=== PATIENT | female | born 1950 | race Caucasian/White ===

== ENCOUNTER → 2018-08-02 13:28 | Outpatient (CLI) | payer MEDICARE, SELFPAY ==
--- NOTE | 2018-08-02 13:33 | CT_ITS ---
CT lung screening EXAM: CT LUNG LOW DOSE WO CONTRAST HISTORY: 60 pack-year smoking history, asymptomatic for lung cancer ITS.REASON: NICOTINE DEPENDENT ORDERING PHYSICIAN: Taina Richardson PATIENT AGE: 67 years COMPARISON: None TECHNIQUE: The exam was performed on a GE Light Speed [address] scanner using 2.90 mGy CTDI. A low dose helical CT CHEST was performed on a multi-detector scanner. All CT scans at the facility use one or more dose reduction, viz: automated exposure control, ma/kV adjustment per patient size (including targeted exams where dose is matched to indication, i.e. head), or iterative reconstruction technique. The LDCT was performed in a facility that meets the criteria for the screening program. Data regarding this exam was submitted to ACR which is an approved registry. The order for this exam indicates that it came as a result of a lung cancer screening counseling shard decision-making visit that included all the elements required of such a visit including smoking cessation. The radiologist interpreting this exam meets the [facility] criteria for the LDCT lung cancer screening program. The exam is reported using the Lung-RADS classification scale and reported to the ACR registry. NOTE: This study was performed for the specific purposes of lung cancer screening and is not an alternative to diagnostic chest CT. RADIATION DOSE: CTDI vol(CT dose Index-volume) = 2.90mG DLP (Dose Length Product) = 104.99 mGcm FINDINGS: Indeterminate or Suspicious Lung Nodules(Category3-4B): None Indeterminate/Non-actionable Nodules(Category2): None Benign nodules(Category1)None LUNG PARENCHYMA COPD. 4 mm noncalcified nodule right middle lobe subpleural. Calcified granuloma right lung base laterally. There is scarring in the left lung base medially Coronary artery calcification is noted. Upper abdominal images show nonobstructing bilateral renal calculi measuring up to 5 mm in the upper pole on the right and 3 mm in the mid polar region on the left. A calcified nodule is present in the right lobe of the thyroid gland at 6 mm IMPRESSION: 1. Lung RADS Category: 2, benign 2. Other findings: COPD, coronary artery calcification consistent with coronary artery disease. Bilateral nephrolithiasis RECOMMENDATIONS: 12 month LDCT follow-up
== END ==
PROVIDERS: PCP Nurse Practitioner Family; Visit Provider Nurse Practitioner Family
DX: Z12.2 Encounter for screening for malignant neoplasm of respiratory organs (principal); Z87.891 Personal history of nicotine dependence

== ENCOUNTER → 2020-08-13 08:12 | Outpatient (CLI) | payer MEDICARE, SELFPAY ==
--- NOTE | 2020-08-13 08:19 | US_ITS ---
PROCEDURE: US ABDOMEN COMPLETE CLINICAL INDICATION: ABD WALL BULGE COMPARISON: No exams were available for comparison FINDINGS: PANCREAS: The visualized pancreas is unremarkable. No ductal dilation. LIVER: No focal liver lesions demonstrated. Homogeneous echogenicity. No intrahepatic biliary ductal dilatation evident. There is appropriate direction of blood flow within a non dilated portal vein RIGHT KIDNEY: Unremarkable. Normal size and echogenicity. No hydronephrosis LEFT KIDNEY: Unremarkable. Normal size and echogenicity. No hydronephrosis GALLBLADDER: No gallstones, gallbladder wall thickening, pericholecystic fluid, or biliary dilatation. CBD measures 0.2 centimeters. AORTA: No evidence of aneurysmal dilatation. SPLEEN: Unremarkable. Normal size and echogenicity ASCITES: None demonstrated. No evidence of mass lesion noted at the area of concern in the right lower quadrant. IMPRESSION: No focal lesions at the site of interest. Unremarkable abdominal ultrasound. Dictated by: Briseida Carrillo 08/13/2020 15:34 Briseida Carrillo in [place] 08/13/2020 15:34
== END ==
PROVIDERS: PCP Nurse Practitioner Family; Visit Provider Nurse Practitioner Family
DX: R19.00 Intra-abdominal and pelvic swelling, mass and lump, unspecified site (principal)
CPT/HCPCS: 76700

== ENCOUNTER → 2020-08-29 10:04 | Outpatient (CLI) | payer MEDICARE, SELFPAY ==
[2020-08-29 11:10] LABS: Blood Urea Nitrogen 12 mg/dl (7-17); Estimated Glomerular Filt Rate 82 ml/min (>60); GFR (African American) 100 ML/MIN (>60)
== END ==
PROVIDERS: Visit Provider Nurse Practitioner Family
DX: R10.9 Unspecified abdominal pain (principal); R19.00 Intra-abdominal and pelvic swelling, mass and lump, unspecified site
CPT/HCPCS: 36415; 82565; 84520

== ENCOUNTER → 2020-08-31 10:12 | Outpatient (CLI) | payer MEDICARE, SELFPAY ==
--- NOTE | 2020-08-31 10:17 | CT_ITS ---
PROCEDURE: CT ABDOMEN PELVIS W CON CLINICAL INDICATION: ABD WALL BULGE, LOW RT SIDED ABD PAIN Rlq to umbilical pain Pt can feel raised area when sitting up COMPARISON: CT ABDPELW/O CT ABD PELVIS W/O CONTRAST from 12/31/2016 TECHNIQUE: IV Contrast: 75ML Isovue 370 Oral Contrast 450ml Redicat Axial images obtained with sagittal and coronal reformats. All CT scans at the facility use one or more dose reduction, viz: automated exposure control, ma/kV adjustment per patient size (including targeted exams where dose is matched to indication, i.e. head), or iterative reconstruction technique. FINDINGS: LOWER THORAX: There is an area of scarring in the left lung base posteriorly and medially. Calcified granuloma is present in the right lower lobe. There are few scattered faint areas of ground-glass attenuation in the lower lobes nonspecific. Coronary artery calcifications are present. There is mild thickening of the distal esophagus nonspecific. ABDOMEN & PELVIS: There is an isodense nodule in the right hepatic lobe anteriorly measuring 17 x 11 mm with some peripheral enhancement/puddling. 7 minutes delayed image shows this area to be filling in centrally suggesting a hemangioma. MRI may confirm. The liver has an otherwise unremarkable appearance. The spleen and adrenal glands have an unremarkable appearance. There is a 4 mm hypodensity in the region of the pancreatic tail. This could represent a small cyst or even partial volume averaging from the fat around the pancreas There is a nonobstructing 5 x 3 mm stone in the upper pole of the right kidney. A 14 mm cyst is present in the lower pole of the right kidney. The left kidney has an unremarkable appearance. There is mild thickening of the descending and transverse portion of the duodenum which is nonspecific. No evidence of appendicitis. There is dense calcification along the right side of the uterus at both the fundus and body of the uterus. Possibly due to a calcified exophytic fibroids focal enhancement is present in the fundus of the uterus on the left measuring 2 cm and could be fibroid in nature. There is mild thickening of the wall the urinary bladder which may be due to nondistention. Colonic diverticulosis is present. No evidence of diverticulitis. A BB is placed in the right mid abdominal region to ramesh area of clinical concern. There is no mass or hernia at this region. No abnormal fluid collection. There is a small area of hyperdensity within the left rectus muscle medially unchanged and may be due to an area of scarring or partial calcification series 4, image 32 measuring 1 x 0.5 cm. No abdominal wall hernia apparent No acute bony findings. IMPRESSION: 1. 17 mm peripheral enhancing right hepatic lobe lesion which may represent a hemangioma. MRI with hemangioma protocol suggested for confirmation. 2. 4 mm cystic area in the pancreatic tail which may only represent a simple cyst or even partial volume averaging artifact. This may be better evaluated with MRI as well. 3. 2 cm enhancing area in the fundus of the uterus on the left along with calcified nodules around the uterus. These areas may represent fibroids. Suggest pelvic ultrasound for confirmation. 4. No evidence of abdominal wall hernia or abnormal fluid collection. Please see above for detail. Dictated by: Byron Lake MD 09/01/2020 12:00 Byron Lake MD in [facility] 09/01/2020 12:00
== END ==
PROVIDERS: PCP Nurse Practitioner Family; Visit Provider Nurse Practitioner Family
DX: R10.9 Unspecified abdominal pain (principal); R19.00 Intra-abdominal and pelvic swelling, mass and lump, unspecified site
CPT/HCPCS: 74177; Q9967

== ENCOUNTER → 2020-09-15 16:35 | Outpatient (CLI) | payer MEDICARE, SELFPAY | PROVIDERS: Visit Provider Urology | DX: N20.0 Calculus of kidney (principal) | CPT/HCPCS: 87086; 87088; 87186 ==

== ENCOUNTER → 2020-09-23 07:48 | Outpatient (CLI) | payer MEDICARE, SELFPAY ==
[2020-09-23 08:21] LABS: Blood Urea Nitrogen 15 mg/dl (7-17); Estimated Glomerular Filt Rate 82 ml/min (>60); GFR (African American) 100 ML/MIN (>60)
--- NOTE | 2020-09-23 08:44 | MR_ITS ---
PROCEDURE: MR ABDOMEN WO/W CON CLINICAL INDICATION: ABNORMAL CT OF THE ABDOMEN COMPARISON: CT CT ABDOMEN PELVIS W CON from 08/31/2020 TECHNIQUE: Routine multiplanar multi echo sequences are performed without gadolinium enhancement. FINDINGS: There are 3 focal T2 hyperintense lesions noted in the right lobe of the liver. The largest of these in the segment 5 measures 1.9 x 1.2 centimeters. Focal lesion demonstrates nodular peripheral progressive filling on multiphasic contrast-enhanced images with the near complete filling on the 15 minutes post-contrast images. The 2nd lesion subcapsular lesion in segment 7 measures approximately 1.5 centimeters, demonstrates progressive peripheral filling. Further smaller subcentimeter T2 hyperintense lesions are noted in the right lobe of the liver, demonstrates filling on the delayed phase images, consistent with hemangiomas. No other focal suspicious mass lesion. No evidence of restricted diffusion. No evidence of intra or extrahepatic biliary dilation. The gallbladder is unremarkable. The rest of the liver demonstrates no focal abnormality. T2 hyperintense focal lesions noted in the right kidney, demonstrates no significant interval change without evidence of enhancement, likely represents a cyst. The spleen, pancreas and adrenal glands are unremarkable. Visualized large and small bowel loops demonstrate no focal abnormality. The visualized lung bases are clear. IMPRESSION: Multiple T2 hyperintense lesions measuring up to 1.9 centimeters in the liver, demonstrates peripheral progressive nodular enhancement. Findings are consistent with hemangiomas. 1.6 centimeters cyst in the right kidney. No other focal suspicious masses. Dictated by: Briseida Carrillo 09/24/2020 09:27 Briseida Carrillo in [place] 09/24/2020 09:27
--- NOTE | 2020-09-23 10:07 | US_ITS ---
PROCEDURE: US TRANSVAGINAL CLINICAL INDICATION: ABNORMAL TISSUE IN UTERUS COMPARISON: No exams were available for comparison FINDINGS: UTERUS: 6.4 x 5cmx 3cm with a combined endometrial thickness of 2.2mm LEFT OVARY: 1kbf0vtp2.2cm with a volume of 2.5ml. RIGHT OVARY: 2cmx 2uvp3ib with a volume of 2.6ml. Multiple hypoechoic lesions are noted in the uterus, largest measures up to 2.2 centimeters, likely represents uterine fibroids. No evidence of free fluid in the pelvic cul-de-sac. IMPRESSION: Findings are consistent with uterine fibroids measuring up to 2.2 centimeters. Dictated by: Briseida Carrillo 09/23/2020 13:16 Briseida Carrillo in [place] 09/23/2020 13:16
== END ==
PROVIDERS: PCP Nurse Practitioner Family; Visit Provider Nurse Practitioner Family
DX: K76.9 Liver disease, unspecified (principal); Q45.3 Other congenital malformations of pancreas and pancreatic duct; R93.5 Abnormal findings on diagnostic imaging of other abdominal regions, including retroperitoneum; R87.9 Unspecified abnormal finding in specimens from female genital organs
CPT/HCPCS: 36415; 74183; 76830; 82565; 84520; A9576

== ENCOUNTER → 2021-10-02 09:42 | Outpatient (CLI) | payer MEDICARE, SELFPAY | PROVIDERS: Visit Provider Ophthalmology | DX: Z01.812 Encounter for preprocedural laboratory examination (principal); Z20.822 Contact with and (suspected) exposure to COVID-19 | CPT/HCPCS: C9803; U0003; U0005 ==

== ENCOUNTER 2021-10-05 09:24 | Day surgery (SDC) | payer MEDICARE, SELFPAY ==
[2021-09-30 13:05] VITALS: BMI 21.9
[2021-10-05 09:42] VITALS: BP 196/81; PULSE 78; RESP 18; TEMP 36.8; O2SAT 100
[2021-10-05 11:20] VITALS: BP 186/80; PULSE 68; RESP 18; O2SAT 98
[2021-10-05 11:25] VITALS: BP 165/73; PULSE 70; RESP 18; O2SAT 97
[2021-10-05 11:30] VITALS: BP 158/70; PULSE 67; RESP 18; O2SAT 98
[2021-10-05 11:34] VITALS: BP 160/69; PULSE 68; RESP 18; O2SAT 98
[2021-10-05 11:37] VITALS: BP 145/65; PULSE 68; RESP 18; TEMP 36.6; O2SAT 98
== END 2021-10-05 11:50 | disposition home or self-care (01) ==
LOC: OR 09:24
PROVIDERS: PCP Nurse Practitioner Family; Visit Provider Ophthalmology
DX: H25.813 Combined forms of age-related cataract, bilateral (principal); H02.831 Dermatochalasis of right upper eyelid; H02.834 Dermatochalasis of left upper eyelid; H91.90 Unspecified hearing loss, unspecified ear; Z88.8 Allergy status to other drugs, medicaments and biological substances
CPT/HCPCS: 66984; V2632

== ENCOUNTER → 2021-10-23 09:20 | Outpatient (CLI) | payer MEDICARE, SELFPAY | PROVIDERS: PCP Nurse Practitioner Family; Visit Provider Ophthalmology | DX: Z01.812 Encounter for preprocedural laboratory examination (principal); Z20.822 Contact with and (suspected) exposure to COVID-19 | CPT/HCPCS: C9803; U0003; U0005 ==

== ENCOUNTER 2021-10-26 09:19 | Day surgery (SDC) | payer MEDICARE, SELFPAY ==
[2021-10-26 10:18] VITALS: BP 161/76; PULSE 83; RESP 18; TEMP 36.6; O2SAT 96; BMI 21.3
[2021-10-26 11:49] VITALS: BP 161/66; PULSE 71; RESP 16; O2SAT 99
[2021-10-26 11:54] VITALS: BP 149/69; PULSE 69; RESP 16; O2SAT 98
[2021-10-26 11:59] VITALS: BP 142/65; PULSE 66; RESP 16; O2SAT 100
[2021-10-26 12:04] VITALS: BP 153/64; PULSE 77; RESP 16; O2SAT 100
[2021-10-26 12:05] VITALS: BP 129/85; PULSE 78; RESP 16; TEMP 36.6; O2SAT 96
== END 2021-10-26 12:20 | disposition home or self-care (01) ==
LOC: OR 09:21
PROVIDERS: PCP Nurse Practitioner Family; Visit Provider Ophthalmology
DX: H25.812 Combined forms of age-related cataract, left eye (principal)
CPT/HCPCS: 66984; V2632

== ENCOUNTER → 2023-04-25 12:09 | Outpatient (POV) | payer MEDICARE, SELFPAY | PROVIDERS: PCP Nurse Practitioner Family; Visit Provider Dermatology | DX: Z00.00 Encounter for general adult medical examination without abnormal findings (principal) ==

== ENCOUNTER 2024-06-12 22:37 | Emergency (ER) | payer MEDICARE, SELFPAY ==
[2024-06-12 22:38] VITALS: BP 196/63; PULSE 87; RESP 20; TEMP 36.7; O2SAT 97; BMI 19.3
--- NOTE | 2024-06-12 22:49 | ECG_ITS ---
APPROVED REPORT Exam: Resting ECG HR:83 bpm ECG Measurements Heart Rate 83 AXES DC 156 P 88 QRSd 75 QRS 84 QT 365 T 85 QTc 404 Conclusion SINUS RHYTHM NORMAL ECG Electronically signed by : THANIA TURNER, 06/13/2024 05:40:40
--- NOTE | 2024-06-12 23:00 | PC.NURSE ---
MD to bedside
--- NOTE | 2024-06-12 23:05 | XR_ITS ---
PROCEDURE INFORMATION: Exam: XR Chest Exam date and time: 06/12/2024 11:01 PM Age: 73 years old Clinical indication: Cough TECHNIQUE: Imaging protocol: Radiologic exam of the chest. Views: 2 views. COMPARISON: LUNGSCREEN CT lung screening 08/02/2018 1:40 PM FINDINGS: Lungs: Calcified granuloma at the right lung base. No consolidation. Pleural spaces: Unremarkable. No pleural effusion. No pneumothorax. Heart/Mediastinum: Unremarkable. No cardiomegaly. Vasculature: Unremarkable. Bones/joints: Unremarkable. IMPRESSION: No acute findings.
--- NOTE | 2024-06-12 23:09 | ED_ITS ---
Discharge Plan Disposition Patient Disposition: Home, Self-Care Condition: Good Prescriptions Prescriptions: New amoxicillin-pot clavulanate 875-125 mg tablet 1 tab PO BID Qty: 14 0RF azithromycin 250 mg tablet See Rx Instructions .ROUTE .COMPLEX Qty: 6 0RF Rx Instructions: take 500 mg (2 tablets) today (day 1), then 250 mg (1 tablet) for 4 days (days 2-5) No Action atorvastatin 20 mg tablet 20 mg PO DAILY Qty: 90 1RF famotidine 40 mg tablet 40 mg PO HS Qty: 90 1RF lisinopril 10 mg tablet 10 mg PO DAILY Qty: 90 1RF Referrals Follow up/Referrals: Rowena Villarreal APRN [Primary Care Provider] - See instructions Activity Restrictions/Add. Instructions Additional Instructions/Restrictions: You were evaluated in the ER and are appropriate for discharge at this time. You are positive for COVID. Please wash your hands and cover your mouth when sneezing and coughing. Maintain good hygiene to avoid spreading your illness. Take the prescribed antibiotics as directed, do not skip doses, do not stop taking them early. Drink plenty of water, gatorade, or pedialyte to maintain good hydration. Please make an appointment with your primary care doctor for reevaluation in 2 to 3 days. Return to the ER with new, worsening, or otherwise concerning symptoms. Clinical Impressions Clinical Impression: COVID, Pneumonia Print Language Print Language: Croatian Discharge ED Provider: Krista Naqvi General Chief Complaint: Shortness of Breath/Dyspnea Stated Complaint: SOA, cough, brandon Time Seen by Provider: 06/12/24 22:59 Mode of Arrival: Ambulatory Source of Information: Patient Limitations: No Limitations Description of Symptoms (Recalled from ER Triage Doc. by RN): pt to ED with c/o cough X2 + weeks, and SOA that started tonight. Pt reports she went to bed tonight, and woke up feeling like she couldn't breathe. pt reports hx of htn. History of Present Illness HPI narrative: 73-year-old female with history of hypertension presents to the ER with cough, shortness of breath. Patient reports she woke up in a coughing fit a few hours prior to arrival and had brief shortness of breath that then spontaneously resolved. She reports she is mostly here to find out if she has COVID or pneumonia because she spent the last few weeks staying in the hospital with her at [facility] while he was admitted for heart failure. She states she never had any chest pain, nausea, vomiting, dizziness, numbness, tingling, weakness, or other associated symptoms. She reports she feels baseline now but would still like to know whether or not she potentially developed pneumonia or caught a virus while in the hospital with her . She denies fevers, chills, headache, abdominal pain, swelling in the feet or legs, reports she is taking her home medications as prescribed. Related Data Previous Rx's ?Medication ?Instructions ?Recorded atorvastatin 20 mg tablet 20 mg PO DAILY Cholesterol #90 tabs 01/22/24 famotidine 40 mg tablet 40 mg PO HS stomach #90 tabs 01/22/24 lisinopril 10 mg tablet 10 mg PO DAILY bp #90 tabs 01/22/24 amoxicillin 875 mg-potassium 1 tab PO BID #14 tabs 06/13/24 clavulanate 125 mg tablet azithromycin 250 mg tablet See Rx Instructions PO .COMPLEX #6 06/13/24 tabs Allergies Allergy/AdvReac Type Severity Reaction Status Date / Time celecoxib (CELECOXIB) Allergy Unknown Verified 01/22/24 14:32 cortisone (CORTISONE) Allergy Unknown Verified 01/22/24 14:32 naproxen (NAPROXEN) Allergy Unknown Verified 01/22/24 14:32 NSAIDS (Non-Steroidal Allergy Unknown Verified 01/22/24 14:32 Anti-Inflamma (NSAIDS (NON-STEROIDAL ANTI-INFLAMMA) [facility] Disclaimer: The information contained in this section may have been updated after the patient was seen, as this information can be updated by other users. Social History Smoking Status: Never smoker alcohol intake: never substance use type: denies use current occupational status: retired Travel in the last 8 weeks: None household members: spouse housing: house caffeine: Yes Have you lived/traveled outside US in past 30 days?: No Contact w/someone who lives/traveled outside US past 30 days?: No Exposure to someone with infectious disease in past 14 days?: No Do you have a fever (greater than 100.4 F or 38 C)?: No Have you tested positive for COVID-19: No Exposed to someone with COVID-19 in past 14 days?: No Do you have a sore throat?: No Do you have a cough?: Yes Do you have any weakness?: No Do you have any diarrhea?: No Are you experiencing any unusual bleeding?: No Do you have any muscle aches/pain?: No Do you have any abdominal pain?: No Are you experiencing loss of taste or smell?: No Other Medical History Have you received the Flu Vaccine for this season: No Have you received the Pneumonia Vaccine: No ROS Obtained: Yes Systems reviewed as appropriate & no additional complaints except as documented Per HPI Physical Exam General General appearance: alert and in no apparent distress Head Head exam: atraumatic and normocephalic Eye Eye exam: Present PERRL and EOMI ENT ENT exam: Present mucous membranes moist Neck Neck exam: Present normal inspection and full ROM Chest Chest inspection: Present symmetric chest wall rise Respiratory Respiratory exam: Present normal lung sounds bilaterally and other (Breathing comfortably, saturating 97% on room air); Absent respiratory distress, wheezes or stridor Cardiovascular Cardiovascular exam: Present regular rate and normal rhythm Abdominal Exam Abdominal exam: Present soft; Absent distention or tenderness Extremities Exam Extremities exam: Present full ROM and normal capillary refill; Absent edema Neurological Exam Neurological exam: Present alert, oriented X3, CN II-XII intact and normal gait; Absent motor sensory deficit Psychiatric Psychiatric exam: Present normal affect and normal mood Skin Skin exam: Present warm and dry HEART Score HEART Score HEART Score assessment performed?: Yes History (anamnesis): Slightly suspicious ECG: Normal Age: >65 years Risk factors: 1-2 risk factors Troponin: </= normal limit HEART Score: 3 Critical Care Critical Care Time Critical Care Time: No Medical Decision Making Medical Records Medical records reviewed: Yes I reviewed the patient's medical records. MR Comment: Patient was seen by Rowena Villarreal in January 2024 for follow-up of hypertension and hyperlipidemia. She was suspected to have GERD without esophagitis. She was prescribed famotidine. Gold Inquiry Pt receiving controlled substance: No Vital Signs Vital Signs: 06/12/24 22:38 Temperature 98.0 F Temperature Source Oral Pulse Rate [Left Radial] 87 Respiratory Rate 20 Blood Pressure [Right Arm] 196/63 H Blood Pressure Mean [Right Arm] 107 Blood Pressure Source [Right Arm] Automatic Cuff Blood Pressure Position [Right Arm] Sitting 02 Sat by Pulse Oximetry 97 Oxygen Delivery Method Room Air Lab Data Labs: Lab Results 06/12/24 22:45: WBC 9.3, RBC 4.53, Hgb 13.2, Hct 40.6, MCV 89.6, MCH 29.1, MCHC 32.5, RDW 13.2, Plt Count 366, MPV 9.1, Neut % (Auto) 36.1 L, Lymph % (Auto) 51.3 H, [place] % (Auto) 6.5, Eos % (Auto) 1.2, Baso % (Auto) 0.4, Neut # (Auto) 3.3, Lymph # (Auto) 4.8 H, [place] # (Auto) 0.6, Eos # (Auto) 0.1, Baso # (Auto) 0.0, Total Counted 100, Neutrophils % (Manual) 37 L, Lymphocytes % (Manual) 61 H , Monocytes % (Manual) 1 L, Eosinophils % (Manual) 1, Platelet Estimate Normal, Stomatocytes 1+, D-Dimer 1.36 H, Sodium 140, Potassium 4.2, Chloride 104, Carbon Dioxide 26, Anion Gap 14.2, BUN 12, Creatinine 0.70, Estimated Creat Clear 37, Estimated GFR 82, Est GFR ( Amer) 99, Glucose 90, Calcium 9.8, Total Bilirubin 0.2, AST 36, ALT 22, Alkaline Phosphatase 63, Troponin I < 0.01, NT-Pro-B Natriuret Pep 209, Total Protein 7.5, Albumin 4.4, Globulin 3.1, Albumin/Globulin Ratio 1.4, HCV Ab JONNA w/Rflx PCR Qn Negative, HIV Ag/Ab Combo Qual Negative 06/12/24 22:50: SARS-CoV-2 (PCR) Detected A, Influenza A Untype (PCR) Not detected, Influenza Type B (PCR) Not detected 06/12/24 22:45 06/12/24 22:45 Response Orders (Tests/Meds): ED MEDICATIONS Generic Name Dose Route Start Last Admin Trade Name Freq PRN Reason Stop Dose Admin Sodium Chloride 10 ml 06/13/24 00:15 06/13/24 00:16 Sodium Chloride 0.9% 10ml Syr (Rad Only) IV 07/13/24 00:14 10 ml NEEDED PRN Administration Maintain IV Site Discontinued Medications Generic Name Dose Route Start Last Admin Trade Name Freq PRN Reason Stop Dose Admin Amoxicillin/Clavulanate Potassium 1 each 06/13/24 00:35 06/13/24 00:39 Amoxicillin/Clavulanate Potassium 875/125mg Tablet PO 06/13/24 00:36 1 each ONCE ONE Administration Iopamidol 70 ml 06/13/24 00:15 06/13/24 00:16 Iopamidol-370 (76%);100ml Bottle IV 06/13/24 00:16 70 ml ONCE ONE Administration Sodium Chloride 50 ml 06/13/24 00:15 06/13/24 00:16 0.9 % Sodium Chloride 50 Ml Vial IV 06/13/24 00:16 50 ml ONCE ONE Administration ORDERS Category Date Time Status CT angio chest PE protocol Stat Cat Scan 06/12/24 23:51 Completed CXR 2 view (NOT portable) [XR chest 2V] Stat Exams 06/12/24 23:05 Completed BNP [NT Pro Brain Natriuretic Pep.] Stat Lab 06/12/24 22:45 Completed CBC w/Auto Diff [Complete Blood Count Auto Diff] Stat Lab 06/12/24 22:45 Completed CMP [Comprehensive Metabolic Panel] Stat Lab 06/12/24 22:45 Completed D-Dimer Stat Lab 06/12/24 22:45 Completed HIV Combo Stat Lab 06/12/24 22:45 Completed Hepatitis C Ab Qual. W/ RFX Stat Lab 06/12/24 22:45 Completed Rapid PCR Covid and Flu A/B Stat Lab 06/12/24 22:50 Completed Trop I [Troponin I] Stat Lab 06/12/24 22:45 Completed Troponin I Q3H Lab 06/13/24 02:15 Ordered Troponin I Q3H Lab 06/13/24 05:15 Ordered MDM Narrative Medical Decision Narrative: In summary, this 73-year-old female with comorbidities described in the HPI which increase the amount of data to be reviewed as well as patient's overall morbidity presents to the emergency department today with cough for 2 weeks, brief episode of shortness of breath that spontaneously resolved. On initial evaluation patient is hemodynamically stable, afebrile, resting comfortably, saturating well on room air with no respiratory distress, clear lungs bilaterally, no adventitious sounds, no peripheral edema, cardiac exam benign, remainder of exam benign, patient is a GCS 15 has no pain or ongoing symptoms. Differential diagnosis includes but is not limited to viral syndrome, including COVID, influenza, also considered pneumonia, pleural effusion, I have much lower concern for ACS or PE though I did consider these. Patient is pain-free and her symptoms were short-lived and spontaneously resolved without any associated symptoms including pain or pressure. Based on these concerns, I ordered serum labs, EKG, D-dimer, COVID/flu swab. ECG personally interpreted demonstrates normal sinus rhythm, rate 83, normal axis, normal ID and QTc, no STEMI. Patient was resting comfortably without acute abnormality on exam, no medications initially administered in the ER. Labs personally reviewed demonstrate normal WBC count, patient does have lymphocytosis likely indicative of viral infection, CMP nonactionable, troponin undetectably low less than 0.01, D-dimer elevated at 1.36, cannot rule out PE so CTA PE was ordered, COVID/flu swab positive for COVID, given patient's duration of symptoms of more than 2 weeks she is not a candidate for Paxlovid, the COVID may also explain her elevated D-dimer. PET scan pending. BNP normal at 209. XR personally interpreted demonstrates no lobar infiltrate, pneumothorax, or pleural effusion, see radiology read for final interpretation. CT imaging personally interpreted demonstrate no large PE, patient does have small area of infiltration in the right lung likely consistent with pneumonia. See radiology read for final interpretation. Patient received a dose of Augmentin in the ER. I prescribed Augmentin and azithromycin for outpatient management of pneumonia. Patient has been independently ambulatory in the ER. She also walked a lap around the ER and maintained oxygen saturation 96% and above while ambulatory. She has not had any recurrent symptoms since the shortness of breath after a coughing fit that initially caused her to present to the ER. I believe she is appropriate for discharge at this time. She is agreeable to this plan. She was given instructions on continued symptomatic monitoring, antibiotic use, good hygiene to avoid spread, follow-up instructions, and return precautions for the ER. She indicated understanding and the patient was discharged in stable condition.
[2024-06-12 23:10] LABS: Influenza A, PCR Not Detected (NotDetected); Influenza B, PCR Not Detected (NotDetected)
--- NOTE | 2024-06-12 23:10 | PC.NURSE ---
Pt to xray via wheelchair
[2024-06-12 23:11] LABS: Basophils % 0.4 % (0.1-2.0); Eosinophils # 0.1 K/mm3 (0.0-0.4); Eosinophils % 1.2 % (0.1-12.0); Hematocrit 40.6 % (37.0-47.0); Hemoglobin 13.2 g/dL (12.2-16.2); Lymphocytes # 4.8 K/mm3 (0.7-4.5); Lymphocytes % 51.3 % (10-50); Mean Corpuscular HGB Conc 32.5 g/dL (31.8-35.4); Mean Corpuscular Hemoglobin 29.1 pg (27.0-31.2); Mean Corpuscular Volume 89.6 fl (81-99); Mean Platelet Volume 9.1 fl (7.4-10.4); Monocytes # 0.6 K/mm3 (0.1-1.0); Monocytes % 6.5 % (1.7-9.3); Neutrophils # 3.3 K/mm3 (1.8-7.8); Neutrophils % 36.1 % (37.0-80.0); Platelet Count 366 K/mm3 (142-424); Red Blood Count 4.53 M/mm3 (4.20-5.40); Red Cell Distribution Width 13.2 % (11.5-17.5); White Blood Count 9.3 K/mm3 (4.8-10.8)
[2024-06-12 23:14] LABS: MANUAL DIFFERENTIAL MANUAL DIFFERENTIAL (MANUAL DIFF)
--- NOTE | 2024-06-12 23:15 | PC.NURSE ---
Pt back from xray
[2024-06-12 23:18] LABS: Alanine Aminotransferase 22 U/L (12-78); Albumin Level 4.4 g/dl (3.5-5.0); Albumin/Globulin Ratio 1.4 (1.1-1.8); Alkaline Phosphatase 63 U/L (38-126); Anion Gap 14.2 mEq/L (5-15); Aspartate Amino Transferase 36 U/L (14-36); Bilirubin,Total 0.2 mg/dl (0.2-1.3); Blood Urea Nitrogen 12 mg/dl (7-17); Calcium 9.8 mg/dl (8.4-10.2); Carbon Dioxide 26 mmol/L (22.0-30.0); Chloride 104 mmol/L (98-107); Creatinine Clearance Estimated 37 mL/min (50-200); Estimated Glomerular Filt Rate 82 ml/min (>60); GFR (African American) 99 ML/MIN (>60); Globulin 3.1 g/dL (1.3-3.2); Glucose 90 mg/dl (74-100); Potassium 4.2 mmoL/L (3.5-5.1); Sodium 140 mmol/L (136-145); Total Protein,Serum 7.5 g/dl (6.3-8.2)
--- NOTE | 2024-06-12 23:18 | PC.NURSE ---
rounded on pt at this time. pt laying in bed. VSS. Call light in reach. Voices no needs at this time.
[2024-06-12 23:22] LABS: D-Dimer 1.36 ug/mL (0.0-0.5)
[2024-06-12 23:30] LABS: NT Pro Brain Natriuretic Pep. 209 pg/mL (0-450)
[2024-06-12 23:31] LABS: Troponin I < 0.01 ng/ml (0.00-0.034)
--- NOTE | 2024-06-12 23:39 | PC.NURSE ---
Took Pt for a lap around the ER to ambulate and to watch 02 pt stayed around the 96 to 97 percent range the entire time
--- NOTE | 2024-06-12 23:51 | CT_ITS ---
PROCEDURE INFORMATION: Exam: CTA Chest With Contrast Exam date and time: 06/13/2024 12:10 AM Age: 73 years old Clinical indication: Shortness of breath; Additional info: SOA dimer+ TECHNIQUE: Imaging protocol: Computed tomographic angiography of the chest with contrast. Exam focused on the arteries. 3D rendering (Not supervised by radiologist): MIP and/or 3D reconstructed images were created by the technologist. Radiation optimization: All CT scans at this facility use at least one of these dose optimization techniques: automated exposure control; mA and/or kV adjustment per patient size (includes targeted exams where dose is matched to clinical indication); or iterative reconstruction. Contrast material: ISOVUE; Contrast volume: 70 ml; Contrast route: INTRAVENOUS (IV); COMPARISON: CR XR CHEST 2V 06/12/2024 11:01 PM FINDINGS: Pulmonary arteries: Normal. No pulmonary emboli. Great vessels off aortic arch: There is greater than 50% calcific stenosis proximal left subclavian artery. Aorta: Unremarkable. No aortic aneurysm. No aortic dissection. Other arteries: There are several arterial enhancing hepatic lesions which are incompletely evaluated on this examination. A report from an MR of the abdomen performed 09/23/2020 comments on multiple hepatic findings consistent with hemangiomas. Thyroid: Several thyroid nodules are noted with the largest measuring 12 mm. Lungs: There is a calcified granuloma within the right lower lobe. There are multiple ill-defined nodular areas of airspace disease throughout the right lung consistent with acute inflammation. Pleural spaces: Unremarkable. No pneumothorax. No pleural effusion. Heart: Unremarkable. No cardiomegaly. No pericardial effusion. Esophagus: There is circumferential wall thickening of the distal thoracic esophagus suggesting esophagitis. Lymph nodes: Unremarkable. No enlarged lymph nodes. Kidneys: Nonobstructing intrarenal calculi are noted. Bones/joints: There are [id number] degenerative changes of the spine. No acute fracture. Soft tissues: Unremarkable. Other findings: Respiratory motion artifacts noted. IMPRESSION: 1. No pulmonary embolus. 2. Ill-defined nodular areas of airspace disease within the right lung, most prominent in the lower lobe, consistent with pneumonia. 3. Other nonurgent findings as noted. COMMENTS: Consistent with the [employer]'s Incidental Findings Committee white paper (J Am Venkatesh Radiol 2015): In patients aged 35 years and older with an incidental thyroid nodule equal to or greater than 1.[address], MRI or extrathyroidal US, further evaluation with dedicated thyroid US is recommended for patients with normal life expectancy and without comorbidities. For smaller nodules without suspicious features, no further evaluation or follow up is recommended.
[2024-06-12 23:55] LABS: Coronavirus 19, PCR Detected (NotDetected)
[2024-06-13 00:02] LABS: HIV Combo NEGATIVE (Negative)
--- NOTE | 2024-06-13 00:09 | PC.NURSE ---
pt to CT at this time
[2024-06-13 00:10] LABS: Hepatitis C Ab Qual. W/ RFX NEGATIVE (Negative)
[2024-06-13] MEDS: 0.9 % SODIUM CHLORIDE 50 ML VIAL IV (00:16)
[2024-06-13] MEDS: SODIUM CHLORIDE 0.9% 10ML SYR (RAD ONLY) 10 ML IV (00:16)
[2024-06-13] MEDS: IOPAMIDOL-370 (76%);100ML BOTTLE 70 ML IV (00:16)
[2024-06-13 00:29] LABS: Eosinophils % 1 % (0-3); Lymphocytes % 61 % (10-50); Monocytes % 1 % (2-9); Neutrophils % 37 % (42-76); Total Cells Counted 100
[2024-06-13 00:30] LABS: Platelet Estimate Normal; Stomatocytes 1+
[2024-06-13] MEDS: AMOXICILLIN/CLAVULANATE POTASSIUM 875/125MG TABLET 1 EACH PO (00:39)
[2024-06-13 00:42] VITALS: BP 173/70; PULSE 88; RESP 20; TEMP 36.9; O2SAT 96
== END 2024-06-13 00:47 | disposition home or self-care (01) ==
PROVIDERS: Student in an Organized Health Care Education/Training Program; Emergency Provider Emergency Medicine; PCP Nurse Practitioner Family
DX: J18.9 Pneumonia, unspecified organism (principal); U07.1 COVID-19; R06.02 Shortness of breath; R05.9 Cough, unspecified; R09.81 Nasal congestion
CPT/HCPCS: 71046; 71275; 80053; 83880; 84484; 85007; 85025; 85027; 85378; 86803; 87389; 87636; 93005; 99285; Q9967

== ENCOUNTER 2025-01-15 10:21 | Outpatient (CLI) | payer MEDICARE, SELFPAY ==
[2025-01-15 16:05] LABS: Alanine Aminotransferase 20 U/L (12-78); Albumin Level 4.2 g/dl (3.5-5.0); Albumin/Globulin Ratio 1.5 (1.1-1.8); Alkaline Phosphatase 61 U/L (38-126); Anion Gap 13.5 mEq/L (5-15); Aspartate Amino Transferase 31 U/L (14-36); Bilirubin,Total 0.2 mg/dl (0.2-1.3); Blood Urea Nitrogen 18 mg/dl (7-17); Calcium 9.2 mg/dl (8.4-10.2); Carbon Dioxide 25 mmol/L (22.0-30.0); Chloride 105 mmol/L (98-107); Cholesterol 257 mg/dl (140-200); Creatinine,Serum 0.70 mg/dl (0.52-1.04); Estimated Glomerular Filt Rate 81 ml/min (>60); GFR (African American) 98 ML/MIN (>60); Globulin 2.8 g/dL (1.3-3.2); Glucose 84 mg/dl (74-100); HDL Cholesterol 52 mg/dl (40-60); Magnesium 1.8 mg/dl (1.6-2.3); Potassium 4.5 mmoL/L (3.5-5.1); Sodium 139 mmol/L (136-145); Total Protein,Serum 7.0 g/dl (6.3-8.2); Triglycerides 223 mg/dl (30-150)
[2025-01-15 17:05] LABS: Thyroid Stimulating Hormone 0.94 uIU/mL (0.465-4.68)
[2025-01-15 17:24] LABS: Vitamin B12 242 pg/mL (239-931)
== END 2025-01-15 23:59 ==
LOC: LAB.DROPOF 01-17 09:38
PROVIDERS: PCP Nurse Practitioner Family; Visit Provider Nurse Practitioner Family
DX: K21.9 Gastro-esophageal reflux disease without esophagitis (principal); E78.5 Hyperlipidemia, unspecified
CPT/HCPCS: 80053; 80061; 82607; 83735; 84443

== ENCOUNTER 2025-04-22 10:08 | Outpatient (CLI) | payer MEDICARE, SELFPAY ==
[2025-04-22 13:27] LABS: Alanine Aminotransferase 39 U/L (12-78); Albumin Level 4.6 g/dl (3.5-5.0); Albumin/Globulin Ratio 1.5 (1.1-1.8); Alkaline Phosphatase 58 U/L (38-126); Anion Gap 16.7 mEq/L (5-15); Aspartate Amino Transferase 44 U/L (14-36); Bilirubin,Total 0.6 mg/dl (0.2-1.3); Blood Urea Nitrogen 17 mg/dl (7-17); Calcium 10.0 mg/dl (8.4-10.2); Carbon Dioxide 27 mmol/L (22.0-30.0); Chloride 102 mmol/L (98-107); Cholesterol 205 mg/dl (140-200); Creatinine,Serum 0.60 mg/dl (0.52-1.04); Estimated Glomerular Filt Rate 97 ml/min (>60); GFR (African American) 118 ML/MIN (>60); Globulin 3.1 g/dL (1.3-3.2); Glucose 83 mg/dl (74-100); HDL Cholesterol 60 mg/dl (40-60); Potassium 4.7 mmoL/L (3.5-5.1); Sodium 141 mmol/L (136-145); Total Protein,Serum 7.7 g/dl (6.3-8.2); Triglycerides 166 mg/dl (30-150)
== END 2025-04-22 23:59 ==
LOC: LAB.DROPOF 04-24 10:10
PROVIDERS: PCP Nurse Practitioner Family; Visit Provider Nurse Practitioner Family
DX: E78.2 Mixed hyperlipidemia (principal); I10 Essential (primary) hypertension
CPT/HCPCS: 80053; 80061